=== PATIENT | male | born 1955 | race African-American/Black ===

== ENCOUNTER 2016-12-28 21:22 | Emergency (ER) | payer SELFPAY ==
[~2016-12-28] VITALS: Ht 170.2 cm; Wt 88.5 kg
[~2016-12-28 21:22] MED LIST: ALBUAER3 IN; ASPI81CH43 PO; BACL-63 PO; FLUT250M2 INH; IBUP600T27 PO; INSLANTI SC; LIS20T PO; MET25T PO; NOR10T PO; Pantoprazole Sodium Sesquihydr PO; RANI300C7 PO
[2016-12-28 22:50] LABS: Basophils # (auto) 0.1 uL; Eosinophils # (auto) 0.1 uL; Monocytes # (auto) 0.6 uL; Red Cell Distribution Width 15.2 % (11.8-14.3)
[2016-12-28 22:53] LABS: Basophils % (auto) 1.4 % (0.0-2.0); Eosinophils % (auto) 1.3 % (0.0-7.0); Hematocrit 43.9 % (41.0-53.0); Hemoglobin 14.1 g/dL (13.5-17.5); Lymphocytes # (auto) 1.6 uL; Lymphocytes % (auto) 29.6 % (10.0-50.0); Mean Corpuscular Hemoglobin 25.2 pg (28.0-32.0); Mean Corpuscular Hgb Conc. 32.2 g/dL (32.0-36.0); Mean Corpuscular Volume 78.4 fL (80.0-100.0); Mean Platelet Volume 8.8 fL (6.9-10.8); Monocytes % (auto) 12.2 % (0.0-12.0); Neutrophils # (auto) 2.9 uL; Neutrophils % (auto) 55.5 % (37.0-80.0); Nucleated Red Blood Cells % 0.2 %; Platelet Count (auto) 151 10^3/uL (140-450); White Blood Cell 5.3 10^3/uL (4.4-10.8)
[2016-12-28 23:23] LABS: Albumin 3.3 g/dL (3.4-5.0); Alkaline Phosphatase 139 U/L (45-117); Anion Gap 8 (5-15); Aspartate Aminotransferase 76 U/L (15-37); BUN/Creatinine Ratio 13.4; Bilirubin, Total 0.2 mg/dL (0.2-1.0); Blood Urea Nitrogen 17 mg/dL (7-18); Calcium 8.6 mg/dL (8.5-10.1); Carbon Dioxide 26 mmol/L (21-32); Chloride 100 mmol/L (98-107); GFR African American 74 mL/min; GFR Non-African American 61 mL/min; Glucose 370 mg/dL (74-106); Magnesium 2.2 mg/dL (1.6-2.6); Potassium 4.7 mmol/L (3.5-5.1); Sodium 134 mmol/L (136-145); Total Protein 8.9 g/dL (6.4-8.2)
[2016-12-29] MEDS ORDERED: IOHEXOL 300 MG/ML 100ML BOTTLE IJ ONE ×2 (07:26→08:34)
[2016-12-29] MEDS ORDERED: SODIUM CHLORIDE 0.9% 1,000 ML IV ONE ×2 (07:49)
[2016-12-29] MEDS ORDERED: PANTOPRAZOLE 40 MG/10 ML VIAL IV ONE (08:00)
[2016-12-29 09:13] VITALS: BP 187/107
== END 2016-12-29 11:44 | disposition home or self-care (01) ==
LOC: ER 21:22
DX: K29.70 Gastritis, unspecified, without bleeding (principal); J44.9 Chronic obstructive pulmonary disease, unspecified; E11.9 Type 2 diabetes mellitus without complications; I10 Essential (primary) hypertension; F17.210 Nicotine dependence, cigarettes, uncomplicated; Z79.4 Long term (current) use of insulin; Z79.82 Long term (current) use of aspirin
CPT/HCPCS: 36415; 71010; 74177; 80053; 83690; 83735; 84484; 85025; 93005; 96361; 96374; 99285; C9113; J7030; Q9967

== ENCOUNTER 2019-10-26 18:45 | Inpatient (IN) | payer OTHER ==
[~2019-10-26] VITALS: Ht 170.2 cm; Wt 87.0 kg
[2019-10-26 22:26] LABS: Urine Bacteria NONE SEEN /hpf (None Seen); Urine Blood Negative /uL (Negative); Urine Specific Gravity 1.029 (1.001-1.035); Urine WBC 1 /hpf (0 - 3)
[2019-10-26] MEDS ORDERED: ONDANSETRON HCL 4 MG/2 ML VIAL IV ONE (23:00)
[2019-10-26] MEDS ORDERED: MORPHINE SULFATE 4 MG/ML SYR/VIAL IV ONE (23:00)
[2019-10-26] MEDS ORDERED: cefTRIAXone 1GM/50ML D5W 50 ML IV ONE (23:00)
[2019-10-26] MEDS ORDERED: SODIUM CHLORIDE 0.9% 1,000 ML IV ONE (23:00)
[2019-10-26] MEDS ORDERED: PANTOPRAZOLE 40 MG/10 ML VIAL INJ IV ONE (23:00)
[2019-10-26] MEDS ORDERED: metroNIDAZOLE 500MG/100ML 100 ML IV ONE (23:00)
[2019-10-26] MEDS ORDERED: PHYTONADIONE (VIT K)10 MG/ML 1ML VIAL SUBCUT ONE (23:00)
[2019-10-26 23:45] LABS: Basophils # (auto) 0 10 ^3/uL (0-0.2); Eosinophils # (auto) 0.1 10 ^3/uL (0-0.8); Lymphocytes # (auto) 1.8 10 ^3/uL (0.4-5.4); Monocytes # (auto) 0.6 10 ^3/uL (0-1.3); Platelet Count (auto) 119 10^3/uL (140-450)
[2019-10-26 23:49] LABS: Basophils % (auto) 0.5 % (0.0-2.0); Eosinophils % (auto) 1.1 % (0.0-7.0); Hematocrit 43.8 % (41.0-53.0); Hemoglobin 13.5 g/dL (13.5-17.5); Lymphocytes % (auto) 19.4 % (10.0-50.0); Mean Corpuscular Hemoglobin 23.4 pg (28.0-32.0); Mean Corpuscular Hgb Conc. 30.8 g/dL (32.0-36.0); Mean Corpuscular Volume 75.9 fL (80.0-100.0); Neutrophils # (auto) 6.8 10 ^3/uL (1.6-8.6); Nucleated Red Blood Cells % 0.2 %; Red Blood Cells 5.77 10^6/uL (4.5-5.90); Red Cell Distribution Width 15.3 % (11.8-14.3); White Blood Cell 9.3 10^3/uL (4.4-10.8)
[2019-10-27 00:05] LABS: Potassium 3.7 mmol/L (3.5-5.1)
[2019-10-27 00:13] LABS: Albumin 3.4 g/dL (3.4-5.0); BUN/Creatinine Ratio 13.9; Bilirubin, Total 0.5 mg/dL (0.2-1.0); Calcium 8.9 mg/dL (8.5-10.1); Total Protein 8.4 g/dL (6.4-8.2)
[2019-10-27 00:20] LABS: INR 1.07 (0.9-1.15); Partial Thromboplastin Time 27.3 sec (23.0-31.2)
[2019-10-27] MEDS ORDERED: ONDANSETRON HCL 4 MG/2 ML VIAL IV ONE (04:30)
[2019-10-27] MEDS ORDERED: MORPHINE SULFATE 4 MG/ML SYR/VIAL IV ONE (04:30)
[2019-10-27] MEDS: InsuLIN REG 1unit/0.01ml Soln (100units/ml) SC SCH ×2 (06:00→12:57)
[2019-10-27] MEDS ORDERED: MORPHINE SULF INJ 2 MG/ML SYRINGE 1ML IV PRN ×2 (06:00→12:00)
[2019-10-27] MEDS ORDERED: ONDANSETRON HCL 4 MG/2 ML VIAL IV PRN ×2 (06:00→12:00)
[2019-10-27] MEDS ORDERED: SODIUM CHLORIDE 0.9% 1,000 ML IV SCH ×2 (06:00→12:00)
[2019-10-27] MEDS ORDERED: DEXTROSE (50%) 50ML SYRG IV PRN (06:00)
[2019-10-27] MEDS ORDERED: NITROGLYCERIN 0.4 MG SL TAB SL PRN (06:00)
[2019-10-27] MEDS: metroNIDAZOLE 500MG/100ML 100 ML IV SCH ×2 (06:31→14:29)
[2019-10-27] MEDS: ACCU-CHEK COMFORT CURVE STRIP VI SCH ×2 (06:37→12:00)
[2019-10-27 06:42] LABS: Hemoglobin 12.4 g/dL (13.5-17.5)
[2019-10-27 08:18] VITALS: BP 156/89
[2019-10-27] MEDS ORDERED: cefTRIAXone 1GM/50ML D5W 50 ML IV SCH (09:00)
[2019-10-27] MEDS ORDERED: PANTOPRAZOLE 40 MG/10 ML VIAL INJ IV SCH ×2 (10:00)
[2019-10-27] MEDS ORDERED: LISINOPRIL 20 MG TAB PO SCH (10:00)
[2019-10-27] MEDS ORDERED: METOPROLOL TARTRATE 25 MG TAB PO SCH (10:00)
[2019-10-27 12:28] VITALS: BP 135/69
[2019-10-27 15:41] VITALS: BP 135/69
== END 2019-10-27 16:20 | disposition short-term general hospital (02) | DRG 377 ==
LOC: ER 18:45 → TELE 18:46 → TELE-WESTW 10-27 07:45
PROVIDERS: ADMIT Nurse Practitioner; ATTEND Family Medicine
DX: K62.5 Hemorrhage of anus and rectum (principal); J18.9 Pneumonia, unspecified organism; C22.9 Malignant neoplasm of liver, not specified as primary or secondary; E11.9 Type 2 diabetes mellitus without complications; F17.210 Nicotine dependence, cigarettes, uncomplicated; I10 Essential (primary) hypertension; J44.9 Chronic obstructive pulmonary disease, unspecified; E78.00 Pure hypercholesterolemia, unspecified; Z20.828 Contact with and (suspected) exposure to other viral communicable diseases; K52.9 Noninfective gastroenteritis and colitis, unspecified; K80.20 Calculus of gallbladder without cholecystitis without obstruction; Z82.49 Family history of ischemic heart disease and other diseases of the circulatory system; Z83.3 Family history of diabetes mellitus
CPT/HCPCS: 36415; 74176; 80053; 81001; 82150; 82962; 83690; 85014; 85018; 85025; 85610; 85730; 86850; 86900; 86901; 93005; C9113; G0378; J0696; J1815; J2405; J3430; J3490

== ENCOUNTER → 2020-03-15 | Outpatient (CLI) | payer OTHER | END | disposition home or self-care (01) | LOC: XYW 14:04 | DX: M47.817 Spondylosis without myelopathy or radiculopathy, lumbosacral region (principal); M48.56XA Collapsed vertebra, not elsewhere classified, lumbar region, initial encounter for fracture; M43.16 Spondylolisthesis, lumbar region; M48.07 Spinal stenosis, lumbosacral region; M48.061 Spinal stenosis, lumbar region without neurogenic claudication; G95.81 Conus medullaris syndrome; M54.5 Low back pain; R59.0 Localized enlarged lymph nodes; M89.38 Hypertrophy of bone, other site; M50.321 Other cervical disc degeneration at C4-C5 level; M25.78 Osteophyte, vertebrae; M50.21 Other cervical disc displacement, high cervical region; M48.02 Spinal stenosis, cervical region | CPT/HCPCS: 72141; 72148 ==

== ENCOUNTER 2020-12-23 14:21 | Inpatient (IN) | payer OTHER ==
[~2020-12-23] VITALS: Ht 170.2 cm; Wt 76.2 kg
[2020-12-23] MEDS ORDERED: NALOXONE HCL 1MG/ML 2ML SYRINGE ONE (14:29)
[2020-12-23] MEDS ORDERED: AMMONIA 0.33 ML INHALANT IN ONE ×2 (14:34→14:45)
[2020-12-23] MEDS ORDERED: NALOXONE HCL 1MG/ML 2ML SYRINGE IV ONE (14:45)
[2020-12-23] MEDS ORDERED: SODIUM CHLORIDE 0.9% 1,000 ML IV ONE (15:00)
[2020-12-23] MEDS ORDERED: SODIUM CHLORIDE 0.9% 500 ML IVB ONE (15:00)
[2020-12-23 15:24] LABS: Basophils # (auto) 0.1 10 ^3/uL (0-0.2); Basophils % (auto) 1.2 % (0.0-2.0); Eosinophils # (auto) 0.1 10 ^3/uL (0-0.8); Eosinophils % (auto) 1.8 % (0.0-7.0); Hematocrit 42.3 % (41.0-53.0); Hemoglobin 13.6 g/dL (13.5-17.5); Lymphocytes # (auto) 2.8 10 ^3/uL (0.4-5.4); Lymphocytes % (auto) 37.7 % (10.0-50.0); Mean Corpuscular Hemoglobin 24.1 pg (28.0-32.0); Mean Corpuscular Hgb Conc. 32.2 g/dL (32.0-36.0); Mean Corpuscular Volume 74.8 fL (80.0-100.0); Monocytes # (auto) 0.9 10 ^3/uL (0-1.3); Monocytes % (auto) 12.7 % (0.0-12.0); Neutrophils # (auto) 3.4 10 ^3/uL (1.6-8.6); Neutrophils % (auto) 46.6 % (37.0-80.0); Nucleated Red Blood Cells % 0.2 %; Red Blood Cells 5.66 10^6/uL (4.5-5.90); Red Cell Distribution Width 15.7 % (11.8-14.3); White Blood Cell 7.4 10^3/uL (4.4-10.8)
[2020-12-23 15:40] LABS: INR 1.06 (0.9-1.15); Partial Thromboplastin Time 27.1 sec (23.6-33.0)
[2020-12-23 15:42] LABS: Albumin 3.2 g/dL (3.4-5.0); Anion Gap 8 (5-15); BUN/Creatinine Ratio 17.6; Blood Alcohol < 3.0 mg/dL (0-5); Blood Urea Nitrogen 37 mg/dL (7-18); Calcium 8.8 mg/dL (8.5-10.1); Carbon Dioxide 28 mmol/L (21-32); Chloride 99 mmol/L (98-107); GFR African American 41 mL/min; GFR Non-African American 34 mL/min; Glucose 321 mg/dL (74-106); Potassium 4.3 mmol/L (3.5-5.1); Sodium 135 mmol/L (136-145)
[2020-12-23 15:45] LABS: Alanine Aminotransferase 85 U/L (16-61); Alkaline Phosphatase 141 U/L (45-117); Aspartate Aminotransferase 64 U/L (15-37); Bilirubin, Total 0.5 mg/dL (0.2-1.0); Total Protein 7.7 g/dL (6.4-8.2)
[2020-12-23 15:50] LABS: Acetaminophen < 2.0 ug/mL (10-30); Salicylate < 1.7 mg/dL (2.8-20.0)
[2020-12-23 16:08] LABS: Urine Bacteria NONE SEEN /hpf (None Seen); Urine Blood Negative /uL (Negative); Urine Specific Gravity 1.008 (1.001-1.035); Urine WBC 1 /hpf (0 - 3)
[2020-12-23 16:26] LABS: Alcohol, Urine < 3.0 mg/dL (0-10); Amphetamine Screen, Urine NEGATIVE (NEGATIVE); Barbiturate Scree,Urine NEGATIVE (NEGATIVE); Benzodiazephine Screen, Urine NEGATIVE (NEGATIVE); Cannabinoid Screen, Urine NEGATIVE (NEGATIVE); Cocaine Screen, Urine NEGATIVE (NEGATIVE); Opiate Scree,Urine POSITIVE (NEGATIVE); Phencyclidine Screen, Urine NEGATIVE (NEGATIVE)
[2020-12-23] MEDS ORDERED: LORazepam 0.5 MG TAB PO PRN (17:45)
[2020-12-23] MEDS ORDERED: IBUPROFEN 600 MG TAB PO PRN (17:45)
[2020-12-23] MEDS ORDERED: DOCUSATE SOD 100 MG CAP PO PRN (17:45)
[2020-12-23] MEDS ORDERED: ONDANSETRON HCL 4 MG/2 ML VIAL IV PRN (17:45)
[2020-12-23] MEDS ORDERED: TEMAZEPAM 15 MG CAP PO PRN (17:45)
[2020-12-23] MEDS: SODIUM CHLORIDE 0.9% 1,000 ML IV SCH (18:16)
[2020-12-23] MEDS: IPRATROPIUM BROM 0.5 MG/2.5ML INH SOL NEB PRN ×2 (18:40→22:38)
[2020-12-23] MEDS: ALBUTEROL SULF 2.5 MG/0.5ML(0.5%) NEB SOLN NEB SCH ×2 (18:40→22:38)
[2020-12-23 23:04] VITALS: BP 155/74
[2020-12-24] MEDS: INSULIN LANTUS (GLARGINE) 1 /0.01ml (100units/ml) SC SCH ×2 (02:19→10:00)
[2020-12-24] MEDS: METOPROLOL TARTRATE 25 MG TAB PO SCH ×3 (02:19→21:22)
[2020-12-24] MEDS: ALBUTEROL SULF 2.5 MG/0.5ML(0.5%) NEB SOLN NEB PRN ×2 (05:34→22:56)
[2020-12-24] MEDS: IPRATROPIUM BROM 0.5 MG/2.5ML INH SOL NEB PRN (05:34)
[2020-12-24] MEDS: BUDESONIDE (INHALATION) 0.5 MG/2 ML NEB NEB SCH ×2 (05:35→22:29)
[2020-12-24 07:27] LABS: Eosinophils # (auto) 0.1 10 ^3/uL (0-0.8); Hemoglobin 13.2 g/dL (13.5-17.5); Mean Corpuscular Hgb Conc. 32.6 g/dL (32.0-36.0)
[2020-12-24 07:29] LABS: Basophils # (auto) 0.3 10 ^3/uL (0-0.2); Basophils % (auto) 2.9 % (0.0-2.0); Eosinophils % (auto) 0.9 % (0.0-7.0); Hematocrit 40.5 % (41.0-53.0); Lymphocytes # (auto) 2.1 10 ^3/uL (0.4-5.4); Lymphocytes % (auto) 22.2 % (10.0-50.0); Mean Corpuscular Hemoglobin 24.5 pg (28.0-32.0); Mean Corpuscular Volume 75.3 fL (80.0-100.0); Monocytes % (auto) 11.2 % (0.0-12.0); Neutrophils # (auto) 5.8 10 ^3/uL (1.6-8.6); Neutrophils % (auto) 62.8 % (37.0-80.0); Nucleated Red Blood Cells % 0.1 %; Red Blood Cells 5.38 10^6/uL (4.5-5.90); Red Cell Distribution Width 15.7 % (11.8-14.3); White Blood Cell 9.3 10^3/uL (4.4-10.8)
[2020-12-24 07:42] LABS: BUN/Creatinine Ratio 20.9; Potassium 4.8 mmol/L (3.5-5.1)
[2020-12-24] MEDS: cefTRIAXone 1GM/50ML D5W 50 ML IV SCH (09:00)
[2020-12-24] MEDS: ENOXAPARIN SOD 40 MG/0.4 ML SYRINGE SC SCH (10:00)
[2020-12-24] MEDS: PANTOPRAZOLE 40 MG TAB PO SCH (10:00)
[2020-12-24] MEDS: ASPirin 81 mg TAB PO SCH (10:00)
[2020-12-24] MEDS ORDERED: AZITHROMYCIN 500MG/ 250ML 250 ML IV SCH (10:00)
[2020-12-24] MEDS: LISINOPRIL 20 MG TAB PO SCH (10:00)
[2020-12-24] MEDS: SODIUM CHLORIDE 0.9% 1,000 ML IV SCH ×2 (10:31→21:32)
[2020-12-24] MEDS: ACETAMINOPHEN 325 MG TAB PO PRN (11:48)
[2020-12-24] MEDS ORDERED: DEXTROSE (50%) 50ML SYRG IV PRN (13:00)
[2020-12-24] MEDS: ACCU-CHEK COMFORT CURVE STRIP VI SCH (17:57)
[2020-12-24] MEDS: InsuLIN REG 1unit/0.01ml Soln (100units/ml) SC SCH (17:57)
[2020-12-24 20:20] VITALS: BP 136/69
[2020-12-24] MEDS ORDERED: HYDROcodone-ACET 5/325MG TAB PO ONE (21:00)
[2020-12-24 22:00] VITALS: BP 165/87
[2020-12-25] MEDS: ACCU-CHEK COMFORT CURVE STRIP VI SCH ×5 (00:04→20:35)
[2020-12-25] MEDS: InsuLIN REG 1unit/0.01ml Soln (100units/ml) SC SCH ×5 (00:08→22:29)
[2020-12-25] MEDS: INSULIN LANTUS (GLARGINE) 1 /0.01ml (100units/ml) SC SCH ×3 (00:09→22:29)
[2020-12-25 05:00] VITALS: BP 167/80
[2020-12-25] MEDS: ACETAMINOPHEN 325 MG TAB PO PRN (05:03)
[2020-12-25 06:54] LABS: Calcium 8.5 mg/dL (8.5-10.1); Potassium 4.1 mmol/L (3.5-5.1)
[2020-12-25] MEDS: cefTRIAXone 1GM/50ML D5W 50 ML IV SCH (08:17)
[2020-12-25 09:20] VITALS: BP 154/89
[2020-12-25] MEDS: LISINOPRIL 20 MG TAB PO SCH (10:00)
[2020-12-25] MEDS: ENOXAPARIN SOD 40 MG/0.4 ML SYRINGE SC SCH (10:00)
[2020-12-25] MEDS: METOPROLOL TARTRATE 25 MG TAB PO SCH ×2 (10:00→20:34)
[2020-12-25] MEDS: ASPirin 81 mg TAB PO SCH (10:00)
[2020-12-25] MEDS: PANTOPRAZOLE 40 MG TAB PO SCH (10:00)
[2020-12-25] MEDS: BUDESONIDE (INHALATION) 0.5 MG/2 ML NEB NEB SCH ×2 (10:43→18:59)
[2020-12-25] MEDS: HYDROcodone-ACET 5/325MG TAB PO PRN ×2 (12:00→20:35)
[2020-12-25] MEDS ORDERED: amLODIPine BESYLATE 5 MG TAB PO ONE (15:45)
[2020-12-25 16:30] VITALS: BP 142/76
[2020-12-25] MEDS: ALBUTEROL SULF 2.5 MG/0.5ML(0.5%) NEB SOLN NEB PRN (18:59)
[2020-12-25 22:08] VITALS: BP 151/93
[2020-12-26 05:00] VITALS: BP 160/86
[2020-12-26] MEDS: ACCU-CHEK COMFORT CURVE STRIP VI SCH ×2 (05:10→12:25)
[2020-12-26] MEDS: InsuLIN REG 1unit/0.01ml Soln (100units/ml) SC SCH ×2 (05:10→13:27)
[2020-12-26] MEDS: BUDESONIDE (INHALATION) 0.5 MG/2 ML NEB NEB SCH (07:33)
[2020-12-26 09:00] VITALS: BP 146/92
[2020-12-26] MEDS ORDERED: AML5T PO (09:08)
[2020-12-26] MEDS ORDERED: amLODIPine BESYLATE 5 MG TAB PO SCH (10:00)
[2020-12-26] MEDS: PANTOPRAZOLE 40 MG TAB PO SCH (10:09)
[2020-12-26] MEDS: METOPROLOL TARTRATE 25 MG TAB PO SCH (10:09)
[2020-12-26] MEDS: ASPirin 81 mg TAB PO SCH (10:09)
[2020-12-26] MEDS: ENOXAPARIN SOD 40 MG/0.4 ML SYRINGE SC SCH (10:10)
[2020-12-26] MEDS: LISINOPRIL 20 MG TAB PO SCH (10:10)
[2020-12-26] MEDS: HYDROcodone-ACET 5/325MG TAB PO PRN (10:11)
[2020-12-26] MEDS: INSULIN LANTUS (GLARGINE) 1 /0.01ml (100units/ml) SC SCH (10:19)
[2020-12-26 12:42] VITALS: BP 158/87
[2020-12-26 13:01] VITALS: BP 146/92
[2020-12-26 17:12] VITALS: BP 158/87
== END 2020-12-26 16:45 | disposition home or self-care (01) | DRG 917 ==
LOC: ER 14:21 → EDBD 14:21 → OVERFLOW 17:36 → TELE-WESTW 12-24 18:29
PROVIDERS: ADMIT Hospitalist; ATTEND Internal Medicine
DX: T40.2X1A Poisoning by other opioids, accidental (unintentional), initial encounter (principal); G92.8 Other toxic encephalopathy; N17.9 Acute kidney failure, unspecified; E44.1 Mild protein-calorie malnutrition; F11.20 Opioid dependence, uncomplicated; I16.1 Hypertensive emergency; E11.21 Type 2 diabetes mellitus with diabetic nephropathy; Z68.26 Body mass index [BMI] 26.0-26.9, adult; E78.5 Hyperlipidemia, unspecified; F17.210 Nicotine dependence, cigarettes, uncomplicated; G89.29 Other chronic pain; R74.8 Abnormal levels of other serum enzymes; Z20.822 Contact with and (suspected) exposure to COVID-19; I10 Essential (primary) hypertension; J44.9 Chronic obstructive pulmonary disease, unspecified; Z82.49 Family history of ischemic heart disease and other diseases of the circulatory system; Z83.3 Family history of diabetes mellitus; Y92.89 Other specified places as the place of occurrence of the external cause
CPT/HCPCS: 36415; 70450; 70551; 71045; 80048; 80053; 80307; 80320; 80329; 81001; 82962; 83036; 83735; 84443; 84484; 85025; 85610; 85730; 87040; 87426; 93005; 94640; 96361; 96374; G0378; J0696; J1815